=== PATIENT | female | born 1945 | race Caucasian/White ===

== ENCOUNTER → 2016-03-22 | Outpatient (CLI) | payer MEDICARE, OTHER ==
--- NOTE | 2016-03-22 11:23 | ST Modified Barium Swallow ---
Recommendation - Recommendations Recommendations: 1) DIET: recommend regular and thin. 2) STRATEGIES: Alternate bites and sips to aid in clearing trace-mild pharyngeal residuals on solids. 3 ) ST to discontinue outpatient dysphagia therapy at this time due to improved pharyngeal swallow and placement on regular and thin diet. ST educated pt on continued home program after discharge. Pt verbalized understanding. SUMMARY: Pt demonstrates a mild-moderate pharyngeal dysphagia, improved since previous MBSS in December 2015, after course of dysphagia therapy. Pt presents with improved pharyngeal strength and reduced residuals in pharyngeal cavity. Penetration seen in previous MBSS, no penetration observed during this MBSS. Pt continues to modify bolus of regular solids (sips of water with regular) pt reports due to xerostomia. Pt has been recommended for regular and thin diet, pt and physician may wish to discuss options for PEG tube. Medical Diagnoses - Medical Diagnoses Medical Diagnosis Description & ICD-10 Code(s): r13.10 Other Medical Diagnoses/Co-Morbidities: Throat CA with chemo and radiation, sinus surgery for deviated septum, histerectomy, PEG tube placement - ICD-10 Tx Diagnosis Coding (1) Dysphagia, oral phase ICD-10 Code(s): R13.11 - DYSPHAGIA, ORAL PHASE (2) Dysphagia, oropharyngeal phase ICD-10 Code(s): R13.12 - DYSPHAGIA, OROPHARYNGEAL PHASE (3) Dysphagia, pharyngeal phase ICD-10 Code(s): R13.13 - DYSPHAGIA, PHARYNGEAL PHASE ST Modified Barium Swallow - General Date: 03/22/16 Referring Physician: Dr Briscoe Risks/Precautions: None Date of Onset: 05/22/15 Reason for Referral: dysphagia oropharyngeal phase - History History obtained from: Patient -: Medical - 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 History of chemo and radiation therapy. Pt had PEG tube placed in September 2012, pt continues to use PEG tube as primary source of nutrition , however now takes pleasure feeds of soft solids by mouth as progressed in OP ST. Pt currently seen at [facility] OP ST for pharyngeal strengthening, has been pt since December 2015. Repeat MBSS to assess progress and determine if [facility]. Medications: cirilo-time, flonase, omeprozole dr, dicyclomine, calcium+D, benadryl, melatonin, glycopyrrolate, Gastrointestinal cocktail with lidocain. Allergies: hay fever - Functional Status Prior Functional Status: INDEPENDENT: feeding Current Functional Limitations: feeding - Subjective Patient/caregiver goal(s): safe swallow Cognitive-Linguistic Function: WNL Speech Intelligibility: WNL Current Nutritional Means: PO Current PO diet: Mechanical - cut Current symptoms: Coughing Pain: 0/5 - Objective Assessment: Upright, Left Lateral - Food Trials Used Food trials used: Thin liquids, Pureed, Regular The patient: Was Able to Self Feed - Oral-Motor Skills Velo-pharyngeal function: Unremarkable Laryngeal Function: Volitional Cough, Volitional Swallow - Assessment Oral prep: Normal - however, pt required sips of thin with bites of regular solids Labial closure: Adequate Leakage: None Mastication: Adequate Lingual Movement: Normal Oral stage: Normal for this Procedure - Pharyngeal Stage Initiation of Pharyngeal Stage Reflex: Normal Decreased laryngeal elevation: No Reduced Velopharyngeal Closure: no Reduced pressure generation: Yes - mild reduced tongue-based retraction: Yes - mild Pre-swallow pooling in valleculae: None Pre-Swallow pooling in pyriforms: None Reduced Thyro-Hyoid approximation: No Reduced epiglottic excursion: Yes - mild-possibly due to structural variance of epiglottis Multiple Swallows with: Cleared w/ Liquid Assist Post-swallow residulas vallecular: Mild - mild on puree, mild-mod on regular Post-Swallow residuals in pyriforms: Mild - mild on puree, mild-mod on regular - Fall Risk Assessment Medications/Conditions that increase fall risks include: Antidepressants, sedatives, anti-arrhythmic, diuretic, benzodiazipenes, neuroleptics. BP regulation problems, cardiac problems, balance or gait deficits, neurological problems. Is patient considered at risk for falls: no Fall Risk Actions Taken: No action needed - Behavioral Observations During evaluation process patient: was pleasant, was cooperative, able to answer questions, provided medical history - Treatment / Educational Needs: Treatment/Education Needs: Treatment consisted of patient education on the role of the Speech Pathologist. Patient's plan of care and golas were communicated as well as scheduling and attendance policies. Recommendations for initial home program were shared. Patient demonstrated understanding and verbalized agreement. Initial home program recommendations: Pt provided with verbal and written education on feeding strategies and recommendations. - Impression/Summary Laryngeal Penetration: No Tracheal Aspiration: no Patient presents with: Oral-Pharyngeal dysph. - mild Risk of Aspiration: Mild - Recommendations NPO: no Solid diet recommendations: Regular Liquid Diet Modification: Thin Pt/Family education and followup with MD: Yes Dysphagia therapy with METAL [employer] WORKER: no - pt may wish to return to therapy with new onset or worsening swallowing problems Recommended techniques: Fully Upright During Meal, Alternate Bites/Sips Information, Precautions and Recommendations: Patient (Written), Patient (Verbal ) - Time Total Time: 15 - Plan of Care Strategies to optimize patient understanding include:: ongoing assessment of educational needs, implementation of educational strategies, and re-education. - - -: Thank you for the opportunity to work with this patient and his/her family. Should you have any questions about this patient's plan or progress, I can be reached at [phone]. Charge G Code? - - -: Yes [facility] [place] Impairment Category - Rationale Based On Rationale Based On: Clin Find., Obj Measures - Swallowing Current G8996: CK 40-59% Impaired Goal G8997: CJ 20-39% Impaired Discharge G8998: CI 1-19% Impaired
== END ==
LOC: RAD 08:16
PROVIDERS: ATTEND Radiology Radiation Oncology
DX: R13.12 Dysphagia, oropharyngeal phase (principal); C14.0 Malignant neoplasm of pharynx, unspecified
CPT/HCPCS: 74230; 92611; G8996; G8997; G8998

== ENCOUNTER → 2016-06-19 | Outpatient (CLI) | payer MEDICARE, OTHER | LOC: RAD 12:58 | PROVIDERS: ATTEND Specialist | DX: C09.1 Malignant neoplasm of tonsillar pillar (anterior) (posterior) (principal) | CPT/HCPCS: 70491 ==

== ENCOUNTER → 2016-10-15 | Outpatient (CLI) | payer MEDICARE, OTHER ==
--- NOTE | 2016-10-15 13:04 | RADIOLOGY REPORT (SQ) ---
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 Reconstructed coronal and sagittal MPR images reviewed. All images stored on PACS. All CT scanners at this facility use dose modulation, iterative reconstruction, and/or weight based d osing when appropriate to reduce radiation dose to as low as reasonably achievable (ALARA). [facility]: Dose Right [facility]: CareDose [facility]: Dose Right [facility]: Teradose 4D [facility]: [employer] CONTRAST TYPE AND DOSE: contrast/concentration: Isovue 370.00 mg/ml; Total Contrast Delivered: 75.0 ml; Total Saline Delivered: 55.0 ml RENAL FUNCTION: BUN 10 creatinine 0.7 RADIATION DOSE: . LIMITATIONS: None. FINDINGS: SKULL BASE: Intact. MAJOR SALIVARY GLANDS: No solid or cystic masses. No inflammatory changes. LYMPHADENOPATHY: No adenopathy. MUCOSAL MASSES OR ASYMMETRY: No mucosal masses or asymmetry. LARYNX/CORDS: Thickening and increased density in the vallecula and piriform recesses which is stable . VASCULAR STRUCTURES: The major vessels are patent. LUNG APICES: Clear. BONES: Intact. THYROID: Normal size. No masses. PARANASAL SINUSES: Mucosal thickening right maxillary sinus. OTHER: Right-sided port tip in the SVC. IMPRESSION: Stable appearance. No evidence of local recurrence. TECHNICAL DOCUMENTATION: JOB ID: [id number] Quality ID # [id number]: Final reports with documentation of one or more dose reduction techniques (e.g., Au tomated exposure control, adjustment of the mA and/or kV according to patient size, use of iterative reconstruction technique) 2010 [employer]- All Rights Reserved
== END ==
LOC: RAD 09:49
PROVIDERS: ATTEND Specialist
DX: C09.1 Malignant neoplasm of tonsillar pillar (anterior) (posterior) (principal)
CPT/HCPCS: 70491; 82565

== ENCOUNTER → 2017-03-06 | Outpatient (CLI) | payer MEDICARE, OTHER | LOC: WI 13:00 | PROVIDERS: ATTEND Family Medicine | DX: Z12.31 Encounter for screening mammogram for malignant neoplasm of breast (principal) | CPT/HCPCS: 77067 ==

== ENCOUNTER → 2017-04-22 | Outpatient (CLI) | payer MEDICARE ==
--- NOTE | 2017-04-22 15:33 | RADIOLOGY REPORT (SQ) ---
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 Reconstructed coronal and sagittal MPR images reviewed. All images stored on PACS. All CT scanners at this facility use dose modulation, iterative reconstruction, and/or weight based d osing when appropriate to reduce radiation dose to as low as reasonably achievable (ALARA). [facility]: Dose Right [facility]: CareDose [facility]: Dose Right [facility]: Teradose 4D [facility]: [employer] CONTRAST TYPE AND DOSE: contrast/concentration: Isovue 370.00 mg/ml; Total Contrast Delivered: 75.0 ml; Total Saline Delivered: 55.0 ml RENAL FUNCTION: Creatinine 0.7 RADIATION DOSE: 19.2 mGy . LIMITATIONS: None. FINDINGS: SKULL BASE: Intact. MAJOR SALIVARY GLANDS: No solid or cystic masses. No inflammatory changes. LYMPHADENOPATHY: No adenopathy. Specifically, no left neck adenopathy is present. There is some jazz rring of the fat planes around the left carotid bifurcation in the area of malignant adenopathy initi ally identified on PET-CT 06/12/2015. This is posttreatment change. MUCOSAL MASSES OR ASYMMETRY: No mucosal masses or asymmetry. Specifically, no left tonsillar fossa m ass is identified LARYNX/CORDS: No abnormal findings. VASCULAR STRUCTURES: The major vessels are patent. LUNG APICES: Clear. BONES: Multilevel degenerative disc changes in the cervical spine THYROID: Normal size. No masses. PARANASAL SINUSES: Circumferential mucous membrane thickening in the right maxillary sinus from chron ic inflammation. Postsurgical changes at the right maxillary sinus outlet, with surgical widening be st shown on coronal image 27 OTHER: No other significant finding. IMPRESSION: No findings worrisome for recurrent tonsillar malignancy on the left TECHNICAL DOCUMENTATION: JOB ID: [id number] Quality ID # [id number]: Final reports with documentation of one or more dose reduction techniques (e.g., Au tomated exposure control, adjustment of the mA and/or kV according to patient size, use of iterative reconstruction technique) 2010 [employer]- All Rights Reserved
== END ==
LOC: RAD 13:03
PROVIDERS: ATTEND Internal Medicine Hematology & Oncology
DX: C09.1 Malignant neoplasm of tonsillar pillar (anterior) (posterior) (principal)
CPT/HCPCS: 70491; 82565

== ENCOUNTER 2019-09-14 13:23 | Emergency (ER) | payer MEDICARE, OTHER ==
--- NOTE | 2019-09-14 16:03 | ER Document Report ---
ED ENT - General Chief Complaint: Sore Throat Stated Complaint: FEVER, SORE THROAT Time Seen by Provider: 09/14/19 15:37 Primary Care Provider: AUSTEN GUAMAN MD [ACTIVE STAFF] - Follow up as needed Mode of Arrival: Ambulatory Information source: Patient Notes: 73-year-old female past medical history significant for thyroid disorder, throat cancer status post chemo, radiation 4 years ago. Finished her treatment end of 2015. Presents to the emergency room complaining of a sore throat for the past 2 days. Complains of nausea but no vomiting. States it hurts to swallow has been unable to swallow pills because has been so painful. States she had a fever of 101 at home but did not take any medications for her fever. She denies any ill contacts. No recent travel. No COVID-19 exposure. Also noticed a white coating to her tongue yesterday. Denies any recent steroids. No use of inhalers. TRAVEL OUTSIDE OF THE [place] IN LAST 30 DAYS: No - Related Data Allergies/Adverse Reactions: No Known Allergies Allergy (Verified 09/14/15 15:46) Past Medical History - General Information source: Patient - Social History Smoking Status: Never Smoker Frequency of alcohol use: None Drug Abuse: None Family History: Reviewed & Not Pertinent Patient has homicidal ideation: No - Past Medical History Cardiac Medical History: Reports: Hx Coronary Artery Disease, Hx Hypertension Denies: Hx Heart Attack Pulmonary Medical History: Denies: Hx Asthma, Hx Bronchitis, Hx COPD, Hx Pneumonia Neurological Medical History: Denies: Hx Cerebrovascular Accident, Hx Seizures GI Medical History: Reports: Hx Ulcer - JUST DX'D. Denies: Hx Hepatitis, Hx Hiatal Hernia Musculoskeletal Medical History: Reports Hx Arthritis Infectious Medical History: Denies: Hx Hepatitis Past Surgical History: Reports: Hx Hysterectomy. Denies: Hx Mastectomy, Hx Open Heart Surgery, Hx Pacemaker - Immunizations Hx Diphtheria, Pertussis, Tetanus Vaccination: Yes Hx Pneumococcal Vaccination: 01/02/13 Review of Systems - Review of Systems Constitutional: Fever EENT: Throat pain Cardiovascular: No symptoms reported Respiratory: No symptoms reported Gastrointestinal: Nausea. denies: Vomiting Musculoskeletal: No symptoms reported Hematologic/Lymphatic: No symptoms reported Neurological/Psychological: No symptoms reported -: Yes All other systems reviewed and negative Physical Exam - Vital signs Vitals: Temp Pulse Resp BP Pulse Ox 99.2 F 82 19 149/85 H 95 09/14/19 13:51 09/14/19 13:51 09/14/19 13:51 09/14/19 13:51 09/14/19 13:51 - Notes Notes: VITAL SIGNS: Within normal limits. GENERAL: Mild acute distress, non-toxic appearance. HEAD: Normal with no signs of head trauma. EYES: PERRLA, EOMI, conjunctiva normal, no discharge. EARS: Hearing grossly intact. NOSE: Normal. THROAT: Oropharynx is normal. Positive posterior pharyngeal erythema. There is thick white coating noted to the tongue. Consistent with thrush. No tonsillar enlargement. NECK: Normal range of motion, no tenderness, supple, no lymphadenopathy, No adenopathy, no JVD. Negative Meningismus, Negative brudzzinski, Negative Kernig's CHEST: Clear breath sounds bilaterally. No wheezes, rales, or rhonchi. CARDIAC: Regular rate and rhythm. S1 and S2, without murmurs, gallops, or rubs. VASCULAR: No Edema. Peripheral pulses normal and equal in all extremities. ABDOMEN: Normal and soft with no tenderness, no masses or pulsatile masses. GASTROINTESTINAL: Bowel sounds normal GENITOURINARY: Normal, No tenderness LYMPATHTIC: No lymphadenopathy noted. MUSCULOSKELETAL: Good range of motion of all major joints. Extremities without clubbing, cyanosis or edema. NEUROLOGICAL: Alert and oriented x 3. No focal sensory or strength deficits. Speech normal. Follows commands appropriately. PSYCHIATRIC: Normal Affect, judgement and mood. SKIN: Normal appearance with no rashes or lesions. Course - Re-evaluation Re-evalutation: 09/14/19 18:04 Patient is resting comfortably no acute distress at this time. Reviewed lab results with patient. Aware of need for CT soft tissue neck secondary to hist ory of throat cancer patient is agreeable with plan of care. 09/14/19 20:09 Patient's resting comfortably she is afebrile, she is nontoxic-appearing, she is able to tolerate p.o. fluids. Reviewed all test results with patient. Will be discharged home on viscous lidocaine, nystatin swish and swallow. She was counseled on the importance to follow-up with her primary care physician if not improving in 2 days. Will be notified if her throat culture is positive. Patient was given strict return to the emergency room guidelines. Return for any new or worsening symptoms. All questions were answered. Patient verbalized understanding and agrees with plan of care. - Vital Signs Vital signs: Temp Pulse Resp BP Pulse Ox 99.2 F 82 19 149/85 H 95 09/14/19 15:30 09/14/19 13:51 09/14/19 13:51 09/14/19 13:51 09/14/19 13:51 - Laboratory Result Diagrams: 09/14/19 16:43 09/14/19 16:43 Laboratory results interpreted by me: 09/14/19 09/14/19 16:43 16:43 WBC 10.8 H RDW 14.6 H Seg Neuts % (Manual) 87 H Lymphocytes % (Manual) 2 L Abs Neuts (Manual) 9.4 H Abs Lymphs (Manual) 0.3 L BUN 25 H - Diagnostic Test Radiology reviewed: Reports reviewed Discharge - Discharge Clinical Impression: Thrush, oral Acute pharyngitis Qualifiers: Pharyngitis/tonsillitis etiology: unspecified etiology Qualified Code(s): J02.9 - Acute pharyngitis, unspecified Condition: Stable Disposition: HOME, SELF-CARE Instructions: Sore Throat ([facility]), Oral Thrush ([facility]) Additional Instructions: Viscous lidocaine and nystatin swish and swallow as prescribed. Follow-up with your primary care physician if not improving in 2 days. You will be notified if your throat culture is positive. Return to the emergency room for any new or worsening symptoms. Prescriptions: Nystatin [Mycostatin 791979 Unit/1 ml Susp 60 ml Btl] 2 ml PO QID #60 ml Lidocaine HCl [Xylocaine 2% Viscous Soln 15 ml Udcup] 15 ml PO Q4H PRN #100 ml PRN Reason: Referrals: AUSTEN GUAMAN MD [ACTIVE STAFF] - Follow up in 3-5 days (If not improving in 2 to 3 days.)
[2019-09-14 17:07] LABS: HEMATOCRIT 40.6 % (36.0-47.0); HEMOGLOBIN 13.5 g/dL (12.0-15.5); MEAN CORPUSCULAR HEMOGLOBIN 27.9 pg (27.0-33.4); MEAN CORPUSCULAR HGB CONC 33.3 g/dL (32.0-36.0); MEAN CORPUSCULAR VOLUME 84 fl (80-97); PLATELET COUNT 276 10^3/uL (150-450); RED BLOOD COUNT 4.85 10^6/uL (3.72-5.28); RED CELL DISTRIBUTION WIDTH 14.6 % (11.5-14.0); WHITE BLOOD COUNT 10.8 10^3/uL (4.0-10.5)
[2019-09-14 17:17] LABS: ALBUMIN 4.2 g/dL (3.5-5.0); ALKALINE PHOSPHATASE 79 U/L (38-126); ANION GAP 7 (5-19); ASPARTATE AMINO TRANSFERASE 33 U/L (14-36); BILIRUBIN,DIRECT 0.3 mg/dL (0.0-0.4); BILIRUBIN,TOTAL 0.9 mg/dL (0.2-1.3); BLOOD UREA NITROGEN 25 mg/dL (7-20); CALCIUM 9.3 mg/dL (8.4-10.2); CARBON DIOXIDE 27 mmol/L (22-30); CHLORIDE 103 mmol/L (98-107); GLUCOSE 97 mg/dL (75-110); POTASSIUM 4.5 mmol/L (3.6-5.0); TOTAL PROTEIN 7.7 g/dL (6.3-8.2)
[2019-09-14 17:29] LABS: ABSOLUTE LYMPHOCYTES# (MANUAL) 0.3 10^3/uL (0.5-4.7); ABSOLUTE MONOCYTES # (MANUAL) 0.9 10^3/uL (0.1-1.4); ANISOCYTOSIS SLIGHT; BASOPHILS % (MANUAL) 0 % (0-2); EOSINOPHILS % (MANUAL) 2 % (0-6); LYMPHOCYTES % (MANUAL) 2 % (13-45); MONOCYTES % (MANUAL) 8 % (3-13); POIKILOCYTOSIS SLIGHT; SEGMENTED NEUTROPHILS % (MAN) 87 % (42-78); TOTAL CELLS COUNTED 100
[2019-09-14 17:30] LABS: OVALOCYTES SLIGHT; PLATELET COMMENT ADEQUATE; PLATELET LARGE PRESENT
--- NOTE | 2019-09-14 19:45 | RADIOLOGY REPORT (SQ) ---
EXAM DESCRIPTION: CT SOFT TISSUE NECK WITH IMAGES COMPLETED DATE/TIME: 09/14/2019 7:25 pm REASON FOR STUDY: dysphagia COMPARISON: None. TECHNIQUE: Post IV contrasted scanning from skull base through lung apices with review of bone, soft tissue and lung windows. Reconstructed coronal and sagittal MPR images reviewed. All images stored on PACS. All CT scanners at this facility use dose modulation, iterative reconstruction, and/or weight based d osing when appropriate to reduce radiation dose to as low as reasonably achievable (ALARA). [facility]: Dose Right [facility]: CareDose [facility]: Dose Right [facility]: Teradose 4D [facility]: [employer] CONTRAST TYPE AND DOSE: contrast/concentration: Isovue 350.00 mmol/ml; Total Contrast Delivered: 70. 0 ml; Total Saline Delivered: 29.9 ml RENAL FUNCTION: BUN 25 creatinine 0.55 RADIATION DOSE: CT Rad equipment meets quality standard of care and radiation dose reduction techniq ues were employed. CTDIvol: 14.4 mGy. DLP: 343 mGy-cm. . LIMITATIONS: None. FINDINGS: SKULL BASE: Intact. MAJOR SALIVARY GLANDS: No solid or cystic masses. No inflammatory changes. LYMPHADENOPATHY: No adenopathy. MUCOSAL MASSES OR ASYMMETRY: No mucosal masses or asymmetry. LARYNX/CORDS: No abnormal findings. VASCULAR STRUCTURES: The major vessels are patent. LUNG APICES: Clear. BONES: Intact. THYROID: Normal size. No masses. PARANASAL SINUSES: Clear. OTHER: No other significant finding. IMPRESSION: NO SIGNIFICANT FINDING IN THE SOFT TISSUES OF THE NECK. TECHNICAL DOCUMENTATION: JOB ID: [id number] Quality ID # [id number]: Final reports with documentation of one or more dose reduction techniques (e.g., Au tomated exposure control, adjustment of the mA and/or kV according to patient size, use of iterative reconstruction technique) 2010 [employer]- All Rights Reserved Reading location - IP/workstation name: [email or web address]
[2019-09-14 20:42] VITALS: BP 154/98
== END 2019-09-14 20:42 | disposition home or self-care (01) ==
LOC: ER 13:23
DX: J02.9 Acute pharyngitis, unspecified (principal); B37.0 Candidal stomatitis; R11.0 Nausea; R50.9 Fever, unspecified; I25.10 Atherosclerotic heart disease of native coronary artery without angina pectoris; I10 Essential (primary) hypertension; Z85.819 Personal history of malignant neoplasm of unspecified site of lip, oral cavity, and pharynx; Z92.3 Personal history of irradiation; Z92.21 Personal history of antineoplastic chemotherapy
CPT/HCPCS: 36415; 70491; 80053; 85025; 87070; 87880; 99284